=== PATIENT | female | born 1960 | race Caucasian/White ===

== ENCOUNTER → 2018-12-19 | Outpatient (CLI) | payer OTHER | LOC: M.RAD 13:25 | DX: Z12.31 Encounter for screening mammogram for malignant neoplasm of breast (principal) ==

== ENCOUNTER → 2020-03-03 | Outpatient (CLI) | payer OTHER | LOC: M.RAD 07:30 | DX: Z12.31 Encounter for screening mammogram for malignant neoplasm of breast (principal) ==

== ENCOUNTER → 2020-03-11 | Outpatient (CLI) | payer OTHER | LOC: M.ULTRA 09:00 | DX: N60.02 Solitary cyst of left breast (principal); N60.01 Solitary cyst of right breast ==

== ENCOUNTER → 2021-05-09 | Outpatient (CLI) | payer OTHER | LOC: M.RAD 08:45 | DX: Z12.31 Encounter for screening mammogram for malignant neoplasm of breast (principal) ==